=== PATIENT | female | born 1970 | race Caucasian/White ===

== ENCOUNTER 2018-02-17 15:32 | Emergency (ER) | payer MEDICAID ==
[~2018-02-17] VITALS: Ht 177242.5 cm; Wt 52.3 kg
[2018-02-17 16:22] LABS: URINE HCG NEGATIVE (NEG)
[2018-02-17] MEDS ORDERED: NO HOME MEDS (16:27)
[2018-02-17 16:30] LABS: BASOPHILS % (AUTO) 0.5 % (0-1); EOSINOPHILS # (AUTO) 0.2 X10'3 (0-0.9); EOSINOPHILS % (AUTO) 1.9 % (0-6); HEMATOCRIT 44.5 % (35.0-45.0); HEMOGLOBIN 15.1 g/dl (12.0-16.0); LYMPHOCYTES # (AUTO) 2.1 X10'3 (1.1-4.8); LYMPHOCYTES % (AUTO) 23.7 % (21-51); MEAN CORPUSCULAR HEMOGLOBIN 30.4 PG (27.0-31.0); MEAN CORPUSCULAR VOLUME 89.5 FL (78-98); MEAN PLATELET VOLUME 9.6 FL (7.4-10.4); MONOCYTES # (AUTO) 0.5 X10'3 (0-0.9); MONOCYTES % (AUTO) 5.8 % (2-12); NEUTROPHILS # (AUTO) 5.9 X10'3 (1.8-7.7); NEUTROPHILS % (AUTO) 68.1 % (42-75); PLATELET COUNT 337 X10'3 (140-440); RED BLOOD COUNT 4.98 X10'6 (4.20-5.60); WHITE BLOOD COUNT 8.7 X10'3 (4.5-11.0)
[2018-02-17 16:33] LABS: URINE AMPHETAMINE SCREEN POSITIVE (Neg); URINE BARBITUATE SCREEN NEGATIVE (Neg); URINE BENZODIAZEPINES SCREEN NEGATIVE (Neg); URINE CANNABINOID SCREEN POSITIVE (Neg); URINE COCAINE SCREEN NEGATIVE (Neg); URINE METHADONE SCREEN NEGATIVE (Neg); URINE OPIATE SCREEN NEGATIVE (Neg); URINE PHENCYCLIDINE SCREEN NEGATIVE (Neg)
[2018-02-17 16:44] LABS: ALANINE AMINOTRANSFERASE 33 U/L (12-78); ALBUMIN 3.8 G/DL (3.4-5.0); ALKALINE PHOSPHATASE 73 IU/L (46-116); ANION GAP 9 (8-16); ASPARTATE AMINO TRANSFERASE 20 U/L (10-37); BILIRUBIN,TOTAL 0.7 MG/DL (0.1-1.0); BLOOD UREA NITROGEN 13 MG/DL (7-18); BUN/CREATININE RATIO 15.3 (6.6-38.0); CALCIUM 8.5 MG/DL (8.5-10.1); CHLORIDE 104 MMOL/L (99-107); CREATININE 0.85 MG/DL (0.40-0.90); GLUCOSE 145 MG/DL (70-104); POTASSIUM 3.4 MMOL/L (3.5-5.1); SODIUM 142 MMOL/L (135-145); TOTAL CARBON DIOXIDE 29.1 MMOL/L (24-32); TOTAL PROTEIN 7.8 G/DL (6.4-8.2); eGFR 72 ML/MIN
[2018-02-17 16:45] LABS: ETHANOL < 0.010 GM/DL (0.0-0.010)
[2018-02-18] MEDS ORDERED: LORazepam 1 MG tablet PO ONE (11:15)
[2018-02-18] MEDS ORDERED: nicotine 14mg patch - 24hr TD ONE (11:15)
[2018-02-18 15:00] LABS: CLARITY,URINE CLEAR (Clear); COLOR,URINE YELLOW (Yellow); GLUCOSE, URINE NEGATIVE (Neg); KETONES,URINE NEGATIVE (Neg); LEUKOCYTE ESTERASE ,URINE NEGATIVE (Neg); NITRITES, URINE NEGATIVE (Neg); OCCULT BLOOD,URINE NEGATIVE (Neg); PROTEIN,URINE NEGATIVE (Neg)
[2018-02-18 15:04] LABS: UA COLLECTION TYPE VOIDED
[2018-02-19] MEDS ORDERED: hydrOXYzine 25 MG tablet PO PRN (11:20)
[2018-02-19] MEDS ORDERED: hyDROXYzine 50 mg/ml injection ***IM only IM PRN (11:20)
[2018-02-19] MEDS ORDERED: sertraline 50mg tablet PO ONE (12:00)
[2018-02-19] MEDS ORDERED: nicotine 21mg patch - 24 hr TD SCH (17:10)
[2018-02-19 17:26] VITALS: BP 126/86
[2018-02-19] MEDS ORDERED: gabapentin 100mg capsule PO SCH (20:00)
== END 2018-02-19 19:44 ==
LOC: ER 15:33
DX: F32.9 Major depressive disorder, single episode, unspecified (principal); F41.9 Anxiety disorder, unspecified; R45.851 Suicidal ideations; F15.10 Other stimulant abuse, uncomplicated; F17.200 Nicotine dependence, unspecified, uncomplicated; Z88.8 Allergy status to other drugs, medicaments and biological substances
CPT/HCPCS: 36415; 80053; 80305; 80320; 81003; 81025; 84443; 85025; 99285; J3410

== ENCOUNTER 2023-07-29 16:38 | Emergency (ER) | payer MEDICAID ==
[~2023-07-29] VITALS: Ht 165.1 cm; Wt 75.0 kg
[~2023-07-29 16:38] MED LIST: NO HOME MEDS
[2023-07-29 17:32] VITALS: BP 133/82; PULSE 81; TEMP 98.5; O2SAT 99
[2023-07-29] MEDS ORDERED: BUPIVAcaine 0.5% W/EPI /PF 30ml vial IJ ONE (19:15)
[2023-07-29] MEDS ORDERED: ketorolac tromethamine 15mg/ml inj. IM ONE (19:15)
[2023-07-29] MEDS ORDERED: ondansetron 4mg rapidly disintigrating tab PO ONE (19:15)
[2023-07-29] MEDS ORDERED: morphine 2 MG/ML inj. syringe IM ONE (19:15)
[2023-07-29] MEDS ORDERED: OXYC-145 PO (20:03)
[2023-07-29] MEDS ORDERED: BUPIVAcaine 0.5% W/EPI /PF 10ml vial IJ ONE (20:25)
[2023-07-29 20:33] VITALS: RESP 18
== END 2023-07-29 21:18 | disposition home or self-care (01) ==
LOC: ER 16:39
DX: S82.841A Displaced bimalleolar fracture of right lower leg, initial encounter for closed fracture (principal); W18.39XA Other fall on same level, initial encounter; Z91.81 History of falling; Y93.89 Activity, other specified; Y92.89 Other specified places as the place of occurrence of the external cause; Y99.8 Other external cause status
CPT/HCPCS: 27840; 73600; 73610; 96372; 99284; J1885; J2270